=== PATIENT | male | born 1965 | race Caucasian/White ===

== ENCOUNTER 2020-01-31 20:36 | Emergency (ER) | payer SELFPAY ==
[~2020-01-31] VITALS: Ht 182.9 cm; Wt 72.6 kg
[2020-01-31 20:50] VITALS: BP 161/93
--- NOTE | 2020-01-31 20:50 | NUR ---
ED Nurse Note: Recieved pt wlk in from home with c/o abdominal pain with nausea , pt had to be assisted out of car stating he was dizzy and couldnt walk, pt appears to be very anxious, speaking fast and moving fast, states has been having pain for 1 hour at 3/10, pt denies cp and c/o SOB but none noted, states smelled weird smell in apartment and made him sob, 02 whx=[id number]%, no sob or labored breathing noted, pt assisted to [facility] via wheelchair, asked to gown and returned to pt on cell phone stating he has to work, will resume care ad ordered and closely monitor, pt states he can not give urine at this time.
[2020-01-31] MEDS ORDERED: Ketorolac 30mg Inj IV ONE (21:15)
--- NOTE | 2020-01-31 21:30 | NUR ---
ED Nurse Note: Meds given effective, pt given water and tolerated well, no nausdea or emesis, pt in room on cell phone, v/s stable, no sob or labored breathing, IV fluids infusing, will continue to closely monitor.
[2020-01-31 21:39] LABS: BASOPHILS % (AUTO) 1.2 % (0.0-2.0); EOSINOPHILS % (AUTO) 1.2 % (0.0-3.0); HEMATOCRIT 45.2 % (42.0-52.0); HEMOGLOBIN 15.2 G/DL (14.2-18.0); LYMPHOCYTES % (AUTO) 28.2 % (20.0-45.0); MEAN CORPUSCULAR VOLUME 91 FL (80-99); MONOCYTES % (AUTO) 8.8 % (1.0-10.0); NEUTROPHILS % (AUTO) 60.6 % (45.0-75.0); PLATELET COUNT 315 K/UL (150-450); RED BLOOD COUNT 4.96 M/UL (4.70-6.10); RED CELL DISTRIBUTION WIDTH 11.6 % (11.6-14.8); WHITE BLOOD COUNT 6.9 K/UL (4.8-10.8)
[2020-01-31 21:44] LABS: CREATININE 1.3 MG/DL (0.55-1.30); POTASSIUM 3.5 MMOL/L (3.5-5.1)
[2020-01-31 21:48] LABS: ALBUMIN 3.7 G/DL (3.4-5.0); ALBUMIN/GLOBULIN RATIO 1.1 (1.0-2.7); BILIRUBIN,TOTAL 0.4 MG/DL (0.2-1.0)
--- NOTE | 2020-01-31 21:51 | Emergency Room Report ---
History of Present Illness General Chief Complaint: Abdominal Pain Source: Patient Present Illness HPI Is a 54-year-old male with no past medical history. He presents with chief plaint of left upper quadrant pain. Onset an hour ago. He said he felt dizzy with 1 episode of nausea and vomiting. No fever chills but no diarrhea. No shortness of breath. Nothing made it better. Not made it worse. Never had this problem before. Denies cough or congestion. 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 Patient History Past Medical History: none, see triage record, old chart reviewed Past Surgical History: none Pertinent Family History: none Social History: Denies: smoking Immunizations: other Reviewed Nursing Documentation: PMH: Agreed; PSxH: Agreed Nursing Documentation-PM Past Medical History: No Stated History Review of Systems Eye: Denies: eye pain, blurred vision ENT: Denies: ear pain, nose congestion, throat swelling Respiratory: Denies: cough, shortness of breath Cardiovascular: Denies: chest pain, palpitations Gastrointestinal: Reports: abdominal pain, nausea, vomiting; Denies: diarrhea Musculoskeletal: Denies: back pain, joint pain Skin: Denies: rash Neurological: Denies: headache, numbness Endocrine: Denies: increased thirst, increased urine Hematologic/Lymphatic: Denies: easy bruising All Other Systems: negative except mentioned in HPI Physical Exam Vital Signs Date Time Temp Pulse Resp B/P (MAP) Pulse Ox O2 Delivery O2 Flow Rate FiO2 01/31/20 20:39 97.2 102 22 161/93 (115) 100 Room Air Vitals with high blood pressure Sp02 EP Interpretation: reviewed, normal General Appearance: well appearing, no apparent distress, alert Head: normocephalic, atraumatic Eyes: bilateral eye PERRL, bilateral eye EOMI ENT: hearing grossly normal, normal pharynx Neck: full range of motion, supple, no meningismus Respiratory: chest non-tender, lungs clear, normal breath sounds Cardiovascular #1: regular rate, rhythm, no murmur Gastrointestinal: normal bowel sounds, no mass, no organomegaly, no bruit, non- distended, tenderness - Left upper quadrant Musculoskeletal: back normal, normal range of motion, gait/station normal Psychiatric: mood/affect normal Medical Decision Making Diagnostic Impression: Primary Impression: Abdominal pain Qualified Codes: R10.12 - Left upper quadrant pain ER Course Presents with left upper quadrant pain. No evidence of acute abdomen or obstruction. He has no chest pain or anginal equivalent pain. He felt better now. Will discharge home. CT/MRI/US Diagnostic Results CT/MRI/US Diagnostic Results : Imaging Test Ordered: CT abdomen pelvis Impression Read by radiologist. Negative. Last Vital Signs Date Time Temp Pulse Resp B/P (MAP) Pulse Ox O2 Delivery O2 Flow Rate FiO2 01/31/20 20:39 97.2 102 22 161/93 (115) 100 Room Air Status: improved Disposition: HOME, SELF-CARE Condition: Improved Scripts Ondansetron (Zofran) 4 Mg Tablet 4 MG ORAL Q6H PRN for Nausea & Vomiting, #10 TAB 0 Refills Prov: Myron Lerner MD 01/31/20 Patient Instructions: Abdominal Pain, Adult Additional Instructions: Follow-up with your doctor in 2 to 3 days if not better. Return if symptoms worsen. Myron Lerner MD Jan 31, 2020 21:51
--- NOTE | 2020-01-31 21:58 | Diagnostic Imaging Report ---
EXAM: CT Abdomen and Pelvis Without Intravenous Contrast CLINICAL HISTORY: ABD PAIN Notes: Complaint abdominal pain and body pain. Onset last night. He said he has some mild epigastric pain but has some more pain he had vomiting today TECHNIQUE: Axial computed tomography images of the abdomen and pelvis without intravenous contrast. CTDI is 4.4 mGy and DLP is 219.0 mGy-cm. One or more of the following dose reduction techniques were used: automated exposure control, adjustment of the mA and/or kV according to patient size, use of iterative reconstruction technique. COMPARISON: Unavailable. FINDINGS: Evaluation of the soft tissue and vasculature is limited on this noncontrast exam. Lung bases: No pleural effusions. No consolidation. ABDOMEN: Liver: Unremarkable, within the confines of this noncontrast exam. Gallbladder and bile ducts: Unremarkable. No calcified stones. No ductal dilation. Pancreas: Unremarkable. No ductal dilation. Spleen: No splenomegaly. Adrenals: Unremarkable. No mass. Kidneys and ureters: 22 mm upper pole right renal cyst. No obstructing stones. No hydronephrosis. Stomach and bowel: No obstruction. No mucosal thickening. A large amount of stool is identified in the colon. No rectal impaction. PELVIS: Appendix: The appendix is normal (coronal 34). Bladder: Decompressed which limits evaluation of the lumen. Urinary bowel wall thickening is present (3: 123). No significant perivesicular inflammatory changes. Reproductive: Unremarkable as visualized. ABDOMEN and PELVIS: Intraperitoneal space: Unremarkable. No free air. No significant fluid collection. Bones/joints: Degenerative changes are noted within the lumbar spine. Soft tissues: Unremarkable. Vasculature: No abdominal aortic aneurysm. Mild atherosclerotic vascular calcifications. Lymph nodes: Unremarkable. No enlarged lymph nodes. IMPRESSION: Urinary bladder wall thickening which may be secondary to the lack of distention but correlate for cystitis. Otherwise, no acute findings identified within the abdomen or pelvis. A large amount of colonic stool. No rectal impaction.
[2020-01-31 22:00] VITALS: BP 150/84
--- NOTE | 2020-01-31 22:15 | NUR ---
ER DISCHARGE NOTE: Patient is cleared to be discharged per ERMD, pt is aox4, on room air, with stable vital signs. pt was given dc and prescription instructions, pt was able to verbalize understanding, pt id band and iv site removed without complications. pt is able to ambulate with steady gait. pt took all belongings.
[2020-01-31] MEDS ORDERED: ZOFRAN4 MG ORAL (22:16)
[2020-01-31 22:20] VITALS: BP 150/84
== END 2020-01-31 22:20 | disposition home or self-care (01) ==
LOC: EMR 21:00
DX: R10.12 Left upper quadrant pain (principal); R11.2 Nausea with vomiting, unspecified
CPT/HCPCS: 36415; 74176; 80053; 83690; 84484; 85025; 96361; 96374; 96375; 99284; J1885; J2405; J7030